=== PATIENT | female | born 1950 | race Caucasian/White ===

== ENCOUNTER 2017-08-28 23:35 | Observation (INO) | payer BC ==
[~2017-08-28] VITALS: Ht 139.7 cm; Wt 67.6 kg
[~2017-08-28 23:35] MED LIST: ASPI81TA3 PO; LISI10TA2 PO; METO-319 PO; NIT4 SL; SIMV20TA2 PO; TRAM50TA2 PO
[2017-08-28 23:39] VITALS: Ht 139.7 cm; Wt 67.6 kg
[2017-08-29] MEDS ORDERED: LIDOCAINE 1%/EPI 30 ML INJ INJ STA (00:49)
[2017-08-29] MEDS ORDERED: SOD CHLORIDE 0.9% 500 ML IV STA (00:50)
[2017-08-29] MEDS ORDERED: LABETALOL HCL 20MG INJ IV ONE (01:00)
[2017-08-29] MEDS ORDERED: OXYMETAZOLINE 0.05% 15 ML NAS SPRAY NASAL ONE (01:00)
[2017-08-29] MEDS ORDERED: ONDANSETRON 4 MG INJ IV STA ×2 (01:19→10:43)
[2017-08-29] MEDS ORDERED: morphine 4 MG/ML VIAL IV STA (01:19)
[2017-08-29 01:30] LABS: BASOPHILS % 0.4 % (0.0-2.0); EOSINOPHILS # 0.1 10^3/ul (0.0-0.5); EOSINOPHILS % 0.7 % (0.0-7.0); HEMATOCRIT 38.3 % (37.0-47.0); HEMOGLOBIN 13.3 g/dl (12.0-16.0); LYMPHOCYTES # 2.7 10^3/ul (0.8-2.9); LYMPHOCYTES % 26.1 % (15.0-51.0); MEAN CORPUSCULAR HEMOGLOBIN 31.4 pg (29.0-33.0); MEAN CORPUSCULAR HGB CONC 34.7 g/dl (32.0-37.0); MEAN CORPUSCULAR VOLUME 90.3 fl (82.0-101.0); MEAN PLATELET VOLUME 9.1 fl (7.4-10.4); MONOCYTE # 0.6 10^3/ul (0.3-0.9); MONOCYTES % 5.8 % (0.0-11.0); NEUTROPHIL # 6.9 10^3/ul (1.6-7.5); NEUTROPHILS % 66.5 % (39.0-77.0); PLATELET COUNT 255 10^3/UL (140-415); RED BLOOD COUNT 4.24 10^6/ul (4.20-5.40); RED CELL DISTRIBUTION WIDTH 12.5 % (11.5-14.5); WHITE BLOOD COUNT 10.3 10^3/ul (4.8-10.8)
[2017-08-29 01:44] LABS: INR 0.91; PROTIME 12.2 Sec (12.2-14.2)
[2017-08-29 01:45] LABS: PARTIAL THROMBOPLASTIN TIME 22.3 Sec (25.0-35.0)
[2017-08-29 01:48] LABS: ALANINE AMINOTRANSFERASE 48 IU/L (13-69); ALBUMIN/GLOBULIN RATIO 1.25; ALKALINE PHOSPHATASE 121 IU/L (42-121); ANION GAP 13 (8-16); ASPARTATE AMINO TRANSFERASE 25 IU/L (15-46); BILIRUBIN,INDIRECT 0.4 mg/dl (0-1.1); BILIRUBIN,TOTAL 0.4 mg/dl (0.2-1.3); BLOOD UREA NITROGEN 19 mg/dl (7-20); CALCIUM 9.2 mg/dl (8.4-10.2); CARBON DIOXIDE 26 mmol/L (21-31); CHLORIDE 106 mmol/L (97-110); CREATININE 0.74 mg/dl (0.44-1.00); GLUCOSE 135 mg/dl (70-220); SODIUM 141 mmol/L (135-144); TOTAL PROTEIN 7.2 g/dl (6.1-8.1)
[2017-08-29 02:00] LABS: TROPONIN-I < 0.012 ng/ml (0.00-0.12)
--- NOTE | 2017-08-29 02:15 | RADRPT ---
PROCEDURE: XR Chest. CLINICAL INDICATION: Chest pain TECHNIQUE: Single frontal view of the chest was obtained COMPARISON: 09/22/2015 FINDINGS: There is hypoinflation lungs and bibasilar atelectasis. Enlargement of the cardiac silhouette is aga in seen. The patient is likely status post CABG. Calcification in the aortic arch apparent. Mild tor tuosity of thoracic aorta again seen. There is no pleural effusion or pneumothorax seen. ECG leads projected over the chest. IMPRESSION: Hypoinflation of the lungs and bibasilar atelectasis. Enlargement of the cardiac silhouette again se en. Please see above. RPTAT: HJES .Ha Jenkins MD, MD Date Time Electronically viewed and signed by .Ha Jenkins MD, MD on 08/29/2017 02:14 .S/
[2017-08-29] MEDS ORDERED: ACETAMINOPHEN 325 MG TAB PO PRN ×2 (02:30→06:00)
[2017-08-29] MEDS ORDERED: ONDANSETRON 4 MG INJ IV PRN (02:30)
--- NOTE | 2017-08-29 03:55 | ERD ---
ER Documentation Chief Complaint Chief Complaint PT IN WITH ACTIVE NOSE BLEED. BLEEDING AROUND PACKING. HPI This 66-year-old female presents with nasal pain and nasal bleeding. Bleeding is actually going on for 3 days on and off. This morning she went to [facility] emergency room and achieved nasal packing. States that the nose been bleeding around the nasal packing as well as getting blood into her eye. She has nausea but no abdominal pain. She cannot think of any trauma sedimentation her nose that would have caused this bleeding. She does not have a history of nosebleeds. ROS All systems reviewed and are negative except as per history of present illness. Medications Home Meds Active Scripts Tramadol HCl (Tramadol HCl) 50 Mg Tablet, 50 MG PO BID Y for back pain, #18 TAB Prov:RILEY JACKSON MD 09/23/15 Simvastatin (Simvastatin) 20 Mg Tablet, 20 MG PO QHS, #30 TAB 2 Refills Prov:RILEY JACKSON MD 09/23/15 Aspirin (Aspirin) 81 Mg Chew, 81 MG PO DAILY, #30 TAB 5 Refills Prov:RILEY JACKSON MD 09/23/15 Reported Medications Nitroglycerin* (Nitrostat*) 0.4 Mg Tab.subl, 0.4 MG SL Q5MIN Y for CHEST PAIN, BOTTLE 09/22/15 Metoprolol Succinate* (Toprol XL*) 50 Mg Tab.er.24h, 50 MG PO DAILY, #30 TAB 09/22/15 Lisinopril* (Lisinopril*) 10 Mg Tablet, 20 PO DAILY 05/21/11 Allergies Allergies: Coded Allergies: No Known Allergies (Verified Allergy, Mild, 05/21/11) PMhx/Soc History of Surgery: Yes (coronary bypass ) Anesthesia Reaction: No Hx Neurological Disorder: No Hx Respiratory Disorders: No Hx Cardiac Disorders: Yes (htn, dyslipidemia) Hx Psychiatric Problems: No Hx Miscellaneous Medical Probl: No Hx Alcohol Use: No Hx Substance Use: No Hx Tobacco Use: No Physical Exam Vitals Vital Signs Date Time Temp Pulse Resp B/P Pulse Ox O2 Delivery O2 Flow Rate FiO2 08/28/17 23:39 98.4 101 20 191/100 96 Physical Exam Const: [] Severe distress, very uncomfortable Head: Atraumatic Eyes: Erythematous conjunctiva of right eye with some blood actually seeping out from lower eyelid. ENT: Normal External Ears, Nose and Mouth. Blood quickly dripping out of his nose around nasal packing that is in right nare. No bleeding from the left nare. Oropharynx with significant blood on tongue and mouth and posterior oropharynx. Neck: Full range of motion.. No JVD Resp: Clear to auscultation bilaterally Cardio: Regular tachycardia, no murmurs Abd: Soft, non tender, non distended. Normal bowel sounds Skin: No petechiae or rashes Ext: No cyanosis, or edema Neur: Awake and alert and oriented 3, no focal deficits Psych: Normal Mood and Affect Result Diagram: 08/29/17 0058 08/29/17 005 Results 24 hrs Laboratory Tests Test 08/29/17 00:58 White Blood Count 10.310^3/ul Red Blood Count 4.2410^6/ul Hemoglobin 13.3g/dl Hematocrit 38.3% Mean Corpuscular Volume 90.3fl Mean Corpuscular Hemoglobin 31.4pg Mean Corpuscular Hemoglobin Concent 34.7g/dl Red Cell Distribution Width 12.5% Platelet Count 18621^3/UL Mean Platelet Volume 9.1fl Neutrophils % 66.5% Lymphocytes % 26.1% Monocytes % 5.8% Eosinophils % 0.7% Basophils % 0.4% Nucleated Red Blood Cells % 0.0/100WBC Neutrophils # 6.910^3/ul Lymphocytes # 2.710^3/ul Monocytes # 0.610^3/ul Eosinophils # 0.110^3/ul Basophils # 0.010^3/ul Nucleated Red Blood Cells # 0.010^3/ul Prothrombin Time 12.2Sec Prothrombin Time Ratio 1.0 INR International Normalized Ratio 0.91 Activated Partial Thromboplast Time 22.3Sec Sodium Level 141mmol/L Potassium Level 4.0mmol/L Chloride Level 106mmol/L Carbon Dioxide Level 26mmol/L Anion Gap 13 Blood Urea Nitrogen 19mg/dl Creatinine 0.74mg/dl Glucose Level 135mg/dl Calcium Level 9.2mg/dl Total Bilirubin 0.4mg/dl Direct Bilirubin 0.00mg/dl Indirect Bilirubin 0.4mg/dl Aspartate Amino Transf (AST/SGOT) 25IU/L Alanine Aminotransferase (ALT/SGPT) 48IU/L Alkaline Phosphatase 121IU/L Troponin I < 0.012ng/ml Total Protein 7.2g/dl Albumin 4.0g/dl Globulin 3.20g/dl Albumin/Globulin Ratio 1.25 Current Medications Medications (Trade) Dose Ordered Sig/Ivy Route PRN Reason Start Time Stop Time Status Last Admin Dose Admin Oxymetazoline HCl (Afrin Vowinckel) 2 spray ONCE ONCE NASAL 08/29/17 01:00 08/29/17 01:01 DC Lidocaine/ Epinephrine 30 ml 30 ml ONCE STAT INJ 08/29/17 00:49 08/29/17 00:51 DC Sodium Chloride (NS) 500 ml @ 500 mls/hr Q1H STAT IV 08/29/17 00:50 08/29/17 01:49 DC 08/29/17 01:16 Labetalol HCl (Labetalol) 20 mg ONCE ONCE IV 08/29/17 01:00 08/29/17 01:01 DC Morphine Sulfate (morphine) 4 mg ONCE STAT IV 08/29/17 01:19 08/29/17 01:20 DC 08/29/17 01:31 Ondansetron HCl (Zofran Inj) 4 mg ONCE STAT IV 08/29/17 01:19 08/29/17 01:20 DC 08/29/17 01:31 Ondansetron HCl (Zofran Inj) 4 mg ER BRIDGE PRN IV NAUSEA AND/OR VOMITING 08/29/17 02:30 08/30/17 02:29 Acetaminophen (Tylenol Tab) 650 mg ER BRIDGE PRN PO MILD PAIN/FEVER 08/29/17 02:30 08/30/17 02:29 Procedures/MDM Likely posterior nasal bleed possibly involving the nasopalatine artery. Patient had significant bleeding apparently coming up through her right nasal lacrimal duct as well. Packing was removed. Patient was able to tolerate spr of Afrin each nostril. Also sprayed few cc of lidocaine with epinephrine on inspiration as well. Blood was literally pouring from right nare. I immediately placed absorbent extended length nasal packing in each nostril coated with bacitracin and inflated with normal saline. This led to hemostasis of the nasal bleeding. Was still slight blood slowly oozing down the posterior oropharynx. No signs of anemia yet. Patient was hydrated with 500 L of normal saline. Spoke with Dr. Olivas, ENT on-call agrees to see the patient in the morning. She did desaturate after the bilateral nasal packing was placed. With Dr. Dixon who agrees to observation admission. Sending ending her to telemetry because of the desaturation. She is placed on a oxygen mask. Epistaxis control note: Inflatable Rhino Rocket was removed from left nare after deflation of balloon that was filled with air. Patient was able to tolerate spray of Afrin each nostril. Also sprayed few cc of lidocaine with epinephrine on inspiration as well. Blood was literally pouring from right nare. I immediately placed absorbent extended length nasal packing in each nostril coated with bacitracin and inflated with normal saline. This led to hemostasis of the nasal bleeding. Was still slight blood slowly oozing down the posterior oropharynx. Patient tolerated the procedure well with no complications. EKG interpretation: Normal sinus rhythm rate of 98, left axis deviation, normal intervals, no ST or T-wave changes concerning for acute ischemia. Abnormal deli worker interpretation: Tachycardia followed by normal sinus rhythm without arrhythmia. Departure Diagnosis: Primary Impression: Nasal hemorrhage Additional Impressions: Oxygen desaturation Acute posterior epistaxis Condition: Serious SKYLERJEREMIAS DO Aug 29, 2017 03:54
[2017-08-29] MEDS ORDERED: NITROGLYCERIN (SL) 0.4 MG TAB SL PRN (06:00)
[2017-08-29] MEDS ORDERED: traMADol 50 MG TAB PO PRN (06:00)
[2017-08-29] MEDS ORDERED: DOCUSATE SODIUM 100 MG CAP PO PRN (06:00)
[2017-08-29] MEDS ORDERED: NACL 0.9% 3 ML SYG IV SCH (06:00)
[2017-08-29] MEDS ORDERED: ONDANSETRON 4 MG TAB PO PRN (06:00)
[2017-08-29] MEDS: DEXTROSE 5%-0.45% NACL 1,000 ML IV SCH ×2 (06:48→20:20)
[2017-08-29 07:56] LABS: CREATINE KINASE 35 IU/L (23-200)
[2017-08-29 08:10] LABS: CK-MB 0.48 ng/ml (0.0-2.4)
[2017-08-29 08:17] LABS: TROPONIN-I < 0.012 ng/ml (0.00-0.12)
[2017-08-29 09:54] LABS: BASOPHILS % 0.6 % (0.0-2.0); EOSINOPHILS # 0.1 10^3/ul (0.0-0.5); EOSINOPHILS % 0.7 % (0.0-7.0); HEMOGLOBIN 11.6 g/dl (12.0-16.0); LYMPHOCYTES # 2.2 10^3/ul (0.8-2.9); LYMPHOCYTES % 30.2 % (15.0-51.0); MEAN CORPUSCULAR HEMOGLOBIN 31.4 pg (29.0-33.0); MEAN CORPUSCULAR HGB CONC 34.1 g/dl (32.0-37.0); MEAN CORPUSCULAR VOLUME 91.9 fl (82.0-101.0); MEAN PLATELET VOLUME 8.9 fl (7.4-10.4); MONOCYTE # 0.4 10^3/ul (0.3-0.9); MONOCYTES % 5.8 % (0.0-11.0); NEUTROPHIL # 4.5 10^3/ul (1.6-7.5); NEUTROPHILS % 62.3 % (39.0-77.0); PLATELET COUNT 209 10^3/UL (140-415); RED CELL DISTRIBUTION WIDTH 12.6 % (11.5-14.5); WHITE BLOOD COUNT 7.2 10^3/ul (4.8-10.8)
[2017-08-29] MEDS: FAMOTIDINE 20 MG TAB PO SCH (09:58)
[2017-08-29 10:12] LABS: CALCIUM 8.4 mg/dl (8.4-10.2); CREATININE 0.62 mg/dl (0.44-1.00); POTASSIUM 4.3 mmol/L (3.5-5.1)
[2017-08-29] MEDS: LISINOPRIL 20 MG TAB PO SCH (10:40)
[2017-08-29] MEDS: METOPROLOL (XL) 50 MG TAB PO SCH (10:40)
[2017-08-29] MEDS ORDERED: HYDROmorphONE 1 MG/ML SYG IV STA (10:43)
--- NOTE | 2017-08-29 10:46 | EN ---
Date/Time of Note Date/Time of Note DATE: 08/29/17 TIME: 10:43 ER Progress Note Patient's right nares started having some anterior bleeding. Procedure Rhino Rocket inserted by me: The patient's packing was removed by me. I did place a 4.5 cm Rhino Rocket and inflated it with 4 cc of air. Bleeding is decreased we will add a few more cc of air. After doing this the patient's nose bleeding has stopped at this current time. He did notify ENT about this CASEY CALL DO Aug 29, 2017 10:46
[2017-08-29 11:21] VITALS: TEMP 98
[2017-08-29 13:14] LABS: CREATINE KINASE 32 IU/L (23-200)
[2017-08-29 13:26] LABS: CK-MB 0.39 ng/ml (0.0-2.4)
[2017-08-29 13:32] LABS: TROPONIN-I < 0.012 ng/ml (0.00-0.12)
[2017-08-29 16:32] VITALS: PULSE 74
--- NOTE | 2017-08-29 17:31 | CONS ---
DATE OF ADMISSION: 08/29/2017 DATE OF CONSULTATION: 08/29/2017 TYPE OF CONSULTATION: Head and neck surgery, ENT. REFERRING PHYSICIAN: Emergency room doctor. REASON FOR CONSULTATION: Epistaxis. Patient was seen at 6:35 this morning in the emergency room. HISTORY OF PRESENT ILLNESS: The patient presents with a history of epistaxis seen at the [facility] emergency department status post packing with continued bleeding. The patient had packing replac ement in the emergency department with resolution of bleeding. The patient has been on aspirin unti l recently. PAST MEDICAL HISTORY: As noted. PAST SURGICAL HISTORY: As noted. MEDICATIONS: Aspirin. ALLERGIES: UNKNOWN. REVIEW OF SYSTEMS: A 14-point system review unremarkable. FAMILY HISTORY: Noncontributory. SOCIAL HISTORY: Noncontributory. PHYSICAL EXAMINATION: VITAL SIGNS: Blood pressure is 170/90, pulse is 90, respirations are 20. GENERAL: Well-developed, well-nourished female in no acute distress. ENT: Tympanic membranes are clear. Anterior rhinoscopy, there is nasal packing bilaterally withou t any obvious bleeding. Oropharynx and cavity is clear without any oropharyngeal bleed. NECK: Supple, full range of motion. LYMPH: No cervical lymphadenopathy. NEUROLOGIC: Cranial through II through XII are grossly intact. EYES: Pupils equal, round, reactive to light and accommodation. Extraocular muscles intact. Scler ae are anicteric. LABORATORY STUDIES: Reviewed. ASSESSMENT: Epistaxis in coagulopathic patient with a recent history of aspirin usage. RECOMMENDATIONS: Continue packing for 3 days. IF bleeding starts, suggest more aggressive packing. If the bleeding is controlled, monitor the patient overnight and discharge tomorrow with oral anti biotic coverage and a followup in 3 days for pack removal. The patient can follow up with primary o r my office with any concerns. Also, continue pain management and correct coagulopathy if any coagu lopathy exists. The patient was seen at 6:35 a.m. this morning, dictation is being done now. Endoscopic to involve physicians on the care of this patient. Dictated By: SAMMY MERLOS/AMI Conf#: [id number] DID#: [id number] CC: HYACINTH HUSAIN MD;*EndCC*
[2017-08-29 17:49] VITALS: BP 138/70; PULSE 79; RESP 20
--- NOTE | 2017-08-29 18:29 | HP ---
DATE OF ADMISSION: 08/29/2017 CHIEF COMPLAINT: "I have a bad bloody nose." HISTORY OF PRESENT ILLNESS: The patient is a pleasant 66-year-old Citizen Of [place] speaking female with hypertension, hyperlipidemia and previous bypass surgery, who was in her usual state of health until approximately when she had vigorous sneezing. After sneezing she noticed that her right eye was "bloodshot " and she started having a profuse epistaxis. She presented to [place] [facility] and was treated and released. According to her daughter, the patient really did not improve and her symptoms persisted. The bleeding was going off and on for about 3 days. She continued to have some bleeding around the nasal packing and around her eye as well and for this reason, she presented to [facility] for further evaluation and treatment. Of note, the patient has been on aspirin 81 mg once daily for her known coronary artery disease. In the ER, the patient was treated by having her packing removed and the lidocaine was sprayed with epinephrine into the area. There was profuse bleeding from the right naris. The emergency room physician placed an absorbent extended length nasal packing into each nostril coated with bacitracin and it was inflated with normal saline. This did achieve some homeostasis of the nasal bleeding. There was still some slight blood oozing around the posterior oropharynx but there were no signs of anemia at that time. She was given 500 mL of normal saline and Dr. eZe was consulted. Of note, the patient did have an episode of desaturation after nasal packing and for this reason, the patient was placed in an observation unit for further evaluation by Dr. Zee. ALLERGIES: NO KNOWN DRUG ALLERGIES. MEDICATIONS: 1. Lisinopril 10 mg once daily. 2. Metoprolol succinate 50 mg once daily. 3. Nitroglycerin 0.4 mg sublingual p.r.n. chest pain. 4. Simvastatin 20 mg once daily. 5. Aspirin 81 mg once daily. 6. Tramadol 50 mg p.o. b.i.d. p.r.n. pain. PAST MEDICAL HISTORY: Includes hypertension, hyperlipidemia, and a previous bypass surgery in 2010. SOCIAL HISTORY: The patient lives with her brother. She works in cleaning. She denies any alcohol or tobacco use. FAMILY HISTORY: Essentially noncontributory in this pleasant 66-year-old female. PHYSICAL EXAMINATION: VITAL SIGNS: Temperature is 98.0, blood pressure currently is 115/75, pulse rate of 74, respiratory rate of 18, oxygen saturation 97% on a 5 liter mask. HEENT: Normocephalic, atraumatic. Extraocular movements are intact. She had erythema around the right lower abdomen. There is no oozing noted. Both nares were packed with Rhino rockets. There was crusted blood noted, but no oozing. Her oropharynx also had erythema and dried blood in there as well. CARDIOVASCULAR: She had a regular rate and rhythm without appreciable murmurs, rubs, or gallops. LUNGS: Her lungs were clear to auscultation bilaterally without rales, rhonchi or crackles. ABDOMEN: Her abdomen was soft, nontender, nondistended with normoactive bowel sounds present in all 4 quadrants. EXTREMITIES: She had no clubbing, cyanosis, or edema noted. She has 2+ dorsalis pedis pulses and 2+ radial pulses bilaterally. LABORATORIES/TESTS: Her white count is 10.3, hemoglobin of 13.3 at 10 hours, 9 hours later it was repeated and the hemoglobin went from 13.3 to 11.6, current hematocrit of 34, platelet count 209,000. Her sodium is 142, potassium 4.3, chloride 107, bicarbonate 27, anion gap 12, BUN 15, creatinine 0.62, glucose 103 , calcium 8.4. Troponin less than 0.012 x3. Total protein 7.2, albumin 4.0, globulin 3.20. Her PT 12.2, INR 0.91, PTT of 22.3. Her chest x-ray reveals hypoinflation of the lungs with bibasilar atelectasis, enlargement of the cardiac silhouette. IMPRESSION: 1. The patient is a very pleasant 66-year-old female who presents with epistaxis after a vigorous sneeze. She has erythema to and subconjunctival hemorrhage as well as epistaxis that was previously not controlled upon her visit to an outside emergency department. [facility] as she had persistent oozing in and around the nasal packing. The packing has been replaced and hemostasis may have been achieved. The patient has already lost 1.5 units and her hemoglobin and for this reason she has been placed on observation status. We are awaiting Dr. Zee to have an ENT consultation for further treatment recommendations. At this point, the patient remains stable. Continue to monitor CBC and make recommendations as needed. 2. Hypertension. Stable. We will continue the patient's outpatient medications and make recommendations as needed. 3. Coronary artery disease. Stable. I will hold the patient's aspirin until we discuss the case with Dr. Zee as she should remain on her aspirin for the cardioprotective effects; however, we do want her to exsanguinate based on her recent epistaxis. Dictated By: JUDSON RODGERS/AMI Conf#: [id number] DID#: [id number]
[2017-08-29 20:00] VITALS: BP 133/72; PULSE 56; PULSE 64; RESP 20
[2017-08-29] MEDS ORDERED: ATORVASTATIN 10 MG TAB PO SCH (21:00)
[2017-08-30] VITALS (10 sets, daily range): BP systolic 129–139; BP diastolic 69–78; PULSE 50–62; RESP 20–21
[2017-08-30] MEDS: DEXTROSE 5%-0.45% NACL 1,000 ML IV SCH ×2 (00:11→09:00)
[2017-08-30 07:34] LABS: BASOPHIL # 0.1 10^3/ul (0.0-0.1); BASOPHILS % 0.5 % (0.0-2.0); EOSINOPHILS # 0.1 10^3/ul (0.0-0.5); EOSINOPHILS % 0.9 % (0.0-7.0); HEMATOCRIT 32.8 % (37.0-47.0); LYMPHOCYTES # 2.4 10^3/ul (0.8-2.9); LYMPHOCYTES % 24.9 % (15.0-51.0); MEAN CORPUSCULAR HEMOGLOBIN 31.4 pg (29.0-33.0); MEAN CORPUSCULAR HGB CONC 33.5 g/dl (32.0-37.0); MEAN CORPUSCULAR VOLUME 93.7 fl (82.0-101.0); MEAN PLATELET VOLUME 9.2 fl (7.4-10.4); MONOCYTE # 0.6 10^3/ul (0.3-0.9); MONOCYTES % 5.9 % (0.0-11.0); NEUTROPHIL # 6.5 10^3/ul (1.6-7.5); NEUTROPHILS % 67.5 % (39.0-77.0); PLATELET COUNT 247 10^3/UL (140-415); RED CELL DISTRIBUTION WIDTH 12.8 % (11.5-14.5); WHITE BLOOD COUNT 9.6 10^3/ul (4.8-10.8)
[2017-08-30] MEDS: METOPROLOL (XL) 50 MG TAB PO SCH (08:17)
[2017-08-30] MEDS: FAMOTIDINE 20 MG TAB PO SCH (08:17)
[2017-08-30] MEDS: LISINOPRIL 20 MG TAB PO SCH (08:18)
--- NOTE | 2017-08-30 17:14 | PN ---
Date/Time of Note Date/Time of Note DATE: 08/30/17 TIME: 17:03 Assessment/Plan VTE Prophylaxis VTE Prophylaxis Intervention: SCD's Lines/Catheters IV Catheter Type (from Nrs): Peripheral IV Assessment/Plan Assessment/Plan 66-year-old female: 1. Epistaxis after a vigorous sneezing. Status post packing and evaluation by ENT Dr. Zee, H&H stable. Appreciate recommendations from ENT. Patient to be discharged home today with outpatient follow-up with ENT within 2-3 days. I will asked [facility] to arrange for it. Patient has remained stable over the past 24 hours, she is off the facemask and maintaining her saturation at 94% on room air. She is able to mouth breathes when she has to do right now. We will discharge home. Continue holding off aspirin. 2. Hypertension. Stable. Discharge with the previous outpatient medications. 3. Coronary artery disease. Stable. Hold aspirin. Until epistaxis resolved and patient follows up with ENT. Prophylaxis: SCDs, Pepcid Disposition: Discharge home with outpatient ENT follow-up in 48-72 hours. Subjective 24 Hr Interval Summary Free Text/Dictation Patient doing well, or facemask satting 94% on room air, she is mouth breathing , she is tolerating p.o. There is no further bleeding currently, hemoglobin is stable. She will be discharged home per ENT recommendations and follow-up with outpatient ENT within 2-3 days. Sounds at the bedside have been updated of the plan of care. Exam/Review of Systems Vital Signs Vitals Vital Signs Date Time Temp Pulse Resp B/P Pulse Ox O2 Delivery O2 Flow Rate FiO2 08/30/17 16:18 98.2 68 20 130/77 96 08/30/17 08:00 Nasal Cannula 4.0 Intake and Output 08/29/17 08/29/17 08/30/17 15:00 23:00 07:00 Intake Total 120 ml Balance 120 ml Exam Constitutional: alert, oriented, well developed Eyes: nl conjunctiva ENMT: other (Nasal packing in place) Neck: non-tender, supple Respiratory: clear to auscultation, normal air movement Cardiovascular: nl pulses, regular rate and rhythm Gastrointestinal: non-tender, soft Musculoskeletal: nl extremities to inspection, nl gait and stance, other (No edema, clubbing or cyanosis) Extremities: normal pulses Neurological: RN MEDICATION II-XII intact, nl mental status, nl speech, nl strength Results Result Diagram: 08/30/17 0640 08/29/17 0944 Results 24 hrs Laboratory Tests Test 08/30/17 06:40 White Blood Count 9.6 # Red Blood Count 3.50 L Hemoglobin 11.0 L Hematocrit 32.8 L Mean Corpuscular Volume 93.7 Mean Corpuscular Hemoglobin 31.4 Mean Corpuscular Hemoglobin Concent 33.5 Red Cell Distribution Width 12.8 Platelet Count 247 Mean Platelet Volume 9.2 Neutrophils % 67.5 Lymphocytes % 24.9 Monocytes % 5.9 Eosinophils % 0.9 Basophils % 0.5 Nucleated Red Blood Cells % 0.0 Neutrophils # 6.5 Lymphocytes # 2.4 Monocytes # 0.6 Eosinophils # 0.1 Basophils # 0.1 Nucleated Red Blood Cells # 0.0 Medications Medications Current Medications Lisinopril (Zestril) 20 mg DAILY PO Last administered on 08/30/17 08:18; Admin Dose 20 MG; Start 08/29/17 at 09:00 Metoprolol Succinate (Toprol Xl) 50 mg DAILY PO Last administered on 08:17; Admin Dose 50 MG; Start 08/29/17 at 09:00 Nitroglycerin (Nitroglycerin (Sl Tab) 0.4 Mg) 0.4 tab [id number] PRN SL CHEST PAIN; Start 08/29/17 at 06:00 Tramadol HCl (Ultram) 50 mg BID PRN PO back pain; Start 08/29/17 at 06:00 Atorvastatin Calcium (Lipitor) 10 mg QHS PO Last administered on 08/29/17 20: 19; Admin Dose 10 MG; Start 08/29/17 at 21:00 Ondansetron HCl (Zofran Tab) 4 mg Q6H PRN PO NAUSEA AND/OR VOMITING; Start 10/03 at 06:00 Acetaminophen (Tylenol Tab) 650 mg Q6H PRN PO PAIN LEVEL 1-3 OR FEVER; Start 08/29/17 at 06:00 Docusate Sodium (Colace) 100 mg Q12H PRN PO CONSTIPATION; Start 08/29/17 at 06 :00 Famotidine (Pepcid) 20 mg Q24H PO Last administered on 08/30/17 08:17; Admin Dose 20 MG; Start 08/29/17 at 09:00 MAYKEL CASTELLANOS Aug 30, 2017 17:14
--- NOTE | 2017-08-30 17:15 | PDOCDIS ---
Discharge Instructions CONDITION Patient Condition: Stable HOME CARE INSTRUCTIONS: Diet Instructions: Low Fat /Cholesterol ACTIVITY: Activity Restrictions: Slowly Increase Activity FOLLOW UP/APPOINTMENTS Follow-up Plan Follow-up with primary care physician within 1 week Follow-up with ENT, KRISTIAN, within 2-3 days, regarding epistaxis and nasal packing MAYKEL CASTELLANOS Aug 30, 2017 17:15
== END 2017-08-30 18:00 | disposition home or self-care (01) ==
LOC: E/R 23:35 → MS4 08-29 02:23
PROVIDERS: ADMIT Internal Medicine; ATTEND Internal Medicine
DX: R04.0 Epistaxis (principal); I25.10 Atherosclerotic heart disease of native coronary artery without angina pectoris; Z95.1 Presence of aortocoronary bypass graft; I10 Essential (primary) hypertension; E78.5 Hyperlipidemia, unspecified; Z79.82 Long term (current) use of aspirin
CPT/HCPCS: 30901; 36415; 71010; 80048; 80053; 82550; 82553; 84484; 85025; 85610; 85730; 93005; 96374; 96375; 96376; 99285; J1170; J2270; J2405; J7040; J7042; Z7500; Z7610; 99217; G0378